=== PATIENT | male | born 1975 | race Caucasian/White ===

== ENCOUNTER 2023-11-17 10:37 | Outpatient (REF) | payer MEDICAID, SELFPAY ==
[2023-11-17 11:36] LABS: MANUAL DIFF FLAG NO
[2023-11-17 11:44] LABS: Basophils Absolute Auto 0.1 X10*3/uL (0.0-0.2); Basophils Percent Auto 0.7 % (0-2); Eosinophils Absolute Auto 0.1 X10*3/uL (0.0-0.4); Eosinophils Percent Auto 1.4 % (0-4); Hematocrit 47.1 % (42.0-52.0); Hemoglobin 16.2 g/dl (14.0-18.0); Imm Gran Abs Auto 0.03 X10*3/uL (0.00-0.03); Imm Gran Pct Auto 0.4 % (0.0-0.4); Lymphocytes Absolute Auto 2.2 X10*3/uL (1.2-4.9); Mean Corpuscular HGB Conc 34.4 g/dl (31.0-36.0); Mean Corpuscular Hemoglobin 27.8 pg (27.0-33.0); Mean Corpuscular Volume 80.9 fL (80.0-98.0); Mean Platelet Volume 9.3 fL (9.4-12.4); Monocytes Absolute Auto 0.5 X10*3/uL (0.1-1.2); Monocytes Percent Auto 7.5 % (2-11); Neutrophils Absolute Auto 4.1 x10*3/uL (2.0-8.3); Platelet Count 323 X10*3/uL (160-400); Red Blood Count 5.82 X10*6/uL (4.60-5.80); Red Cell Distribution Width 12.7 % (11.0-16.0)
[2023-11-17 12:12] LABS: Estimated Average Glucose 280 mg/dL; Hemoglobin A1c % 11.4 % (<6.0)
[2023-11-17 14:34] LABS: Anion Gap 14 (12-20); Blood Urea Nitrogen 13 mg/dL (9-16); Calcium 9.7 mg/dL (8.4-10.2); Carbon Dioxide 25 mmol/L (22-29); Chloride 101 mmol/L (96-108); Estimated Glomerular Filt Rate > 60; Glucose Random 365 mg/dL (60-115); Potassium 4.4 mmol/L (3.3-5.1); Sodium 136 mmol/L (135-145)
== END 2023-11-17 10:38 | disposition home or self-care (01) ==
LOC: HO.HHCL 10:37
PROVIDERS: Visit Provider Emergency Medicine
DX: I10 Essential (primary) hypertension (principal); E11.9 Type 2 diabetes mellitus without complications
CPT/HCPCS: 36415; 80048; 83036; 85025

== ENCOUNTER 2024-02-28 11:16 | Outpatient (REF) | payer MEDICAID, SELFPAY ==
[2024-02-28 13:14] LABS: MANUAL DIFF FLAG NO
[2024-02-28 13:21] LABS: Basophils Absolute Auto 0.1 X10*3/uL (0.0-0.2); Basophils Percent Auto 0.8 % (0-2); Eosinophils Absolute Auto 0.2 X10*3/uL (0.0-0.4); Eosinophils Percent Auto 2.1 % (0-4); Hematocrit 45.4 % (42.0-52.0); Imm Gran Abs Auto 0.05 X10*3/uL (0.00-0.03); Imm Gran Pct Auto 0.6 % (0.0-0.4); Lymphocytes Absolute Auto 2.4 X10*3/uL (1.2-4.9); Lymphocytes Percent Auto 27.5 % (20-40); Mean Corpuscular HGB Conc 35.2 g/dl (31.0-36.0); Mean Corpuscular Hemoglobin 28.3 pg (27.0-33.0); Mean Corpuscular Volume 80.2 fL (80.0-98.0); Mean Platelet Volume 9.5 fL (9.4-12.4); Monocytes Absolute Auto 0.7 X10*3/uL (0.1-1.2); Neutrophils Absolute Auto 5.2 x10*3/uL (2.0-8.3); Platelet Count 310 X10*3/uL (160-400); Red Blood Count 5.66 X10*6/uL (4.60-5.80); Red Cell Distribution Width 12.9 % (11.0-16.0); White Blood Count 8.5 X10*3/uL (4.8-10.8)
[2024-02-28 13:41] LABS: Alanine Aminotransferase 38 U/L (0-40); Albumin Level 4.4 g/dL (3.5-5.0); Alkaline Phosphatase 95 U/L (39-117); Anion Gap 13 (12-20); Aspartate Amino Transferase 16 U/L (5-37); Bilirubin Total 1.1 mg/dL (0.0-1.0); Blood Urea Nitrogen 18 mg/dL (9-16); Calcium 9.7 mg/dL (8.4-10.2); Carbon Dioxide 24 mmol/L (22-29); Chloride 103 mmol/L (96-108); Cholesterol 203 mg/dL (<200); Estimated Glomerular Filt Rate > 60; Glucose Random 282 mg/dL (60-115); HDL Cholesterol 33 mg/dL (>40); LDL Cholesterol Calculated 117 mg/dL (<100); Potassium 4.5 mmol/L (3.3-5.1); Sodium 135 mmol/L (135-145); Total Protein 7.9 g/dL (6.5-8.0); Triglycerides 267 mg/dL (<150)
== END 2024-02-28 11:17 | disposition home or self-care (01) ==
LOC: HO.HHCL 11:16
PROVIDERS: Visit Provider Nurse Practitioner Family
DX: E11.9 Type 2 diabetes mellitus without complications (principal); I10 Essential (primary) hypertension
CPT/HCPCS: 36415; 80053; 80061; 85025

== ENCOUNTER 2024-07-14 09:45 | Outpatient (REF) | payer MEDICAID, SELFPAY ==
[2024-07-14 12:07] LABS: Alanine Aminotransferase 41 U/L (0-40); Albumin Level 4.3 g/dL (3.5-5.0); Alkaline Phosphatase 103 U/L (39-117); Anion Gap 11 (12-20); Aspartate Amino Transferase 23 U/L (5-37); Bilirubin Direct 0.5 mg/dL (0.0-0.5); Bilirubin Total 1.7 mg/dL (0.0-1.0); Blood Urea Nitrogen 12 mg/dL (9-16); Calcium 9.1 mg/dL (8.4-10.2); Carbon Dioxide 27 mmol/L (22-29); Chloride 104 mmol/L (96-108); Cholesterol 115 mg/dL (<200); Estimated Glomerular Filt Rate > 60; Glucose Random 206 mg/dL (60-115); HDL Cholesterol 27 mg/dL (>40); LDL Cholesterol Calculated 53 mg/dL (<100); Potassium 4.2 mmol/L (3.3-5.1); Sodium 138 mmol/L (135-145); Total Protein 7.8 g/dL (6.5-8.0); Triglycerides 176 mg/dL (<150)
[2024-07-14 12:13] LABS: Creatinine Urine 207.35 mg/dL; Microalbum/Creatinine Ratio Ur 22.1 ug/mg cr (<30)
[2024-07-14 12:26] LABS: Vitamin B12 577 pg/mL (200-900)
== END 2024-07-14 09:46 | disposition home or self-care (01) ==
LOC: HO.HHCL 09:45
PROVIDERS: Visit Provider Nurse Practitioner Family
DX: I10 Essential (primary) hypertension (principal); I63.9 Cerebral infarction, unspecified; E11.9 Type 2 diabetes mellitus without complications
CPT/HCPCS: 36415; 80048; 80061; 80076; 82043; 82570; 82607

== ENCOUNTER 2024-10-27 10:23 | Outpatient (REF) | payer MEDICAID, SELFPAY ==
[2024-10-27 11:21] LABS: MANUAL DIFF FLAG NO
[2024-10-27 11:31] LABS: Basophils Percent Auto 0.4 % (0-2); Eosinophils Absolute Auto 0.1 X10*3/uL (0.0-0.4); Eosinophils Percent Auto 1.5 % (0-4); Hematocrit 41.1 % (42.0-52.0); Hemoglobin 14.3 g/dl (14.0-18.0); Imm Gran Abs Auto 0.04 X10*3/uL (0.00-0.03); Imm Gran Pct Auto 0.4 % (0.0-0.4); Lymphocytes Absolute Auto 2.1 X10*3/uL (1.2-4.9); Lymphocytes Percent Auto 22.1 % (20-40); Mean Corpuscular HGB Conc 34.8 g/dl (31.0-36.0); Mean Corpuscular Hemoglobin 27.3 pg (27.0-33.0); Mean Corpuscular Volume 78.4 fL (80.0-98.0); Monocytes Absolute Auto 0.5 X10*3/uL (0.1-1.2); Neutrophils Absolute Auto 6.6 x10*3/uL (2.0-8.3); Neutrophils Percent Auto 70.6 % (45-73); Platelet Count 328 X10*3/uL (160-400); Red Blood Count 5.24 X10*6/uL (4.60-5.80); Red Cell Distribution Width 13.2 % (11.0-16.0); White Blood Count 9.3 X10*3/uL (4.8-10.8)
--- OUTSIDE RECORDS SUMMARY | 2024-10-27 11:49 | XMS_ITS | Clinical Summary ---
Author Organization [employer] Address [address] [facility] [address] [place] [address] Care Team Providers Care Linotypist Name Role Phone MaximoLivia kelley CRISTI Primary Care Provider [phone] Samia Crum PharmD Unavailable [phone]- [phone] Allergies No known active allergies Medications lisinopril (Prinivil) 20 MG tabletIndications: Hypertension, unspecified type Take 1 tablet (20 mg) by mouth Once per day. 30 tablet 11 024 2024 Active amLODIPine (Norvasc) 5 MG tablet Take 1 tablet (5 mg) by mouth Once per day. 30 tablet 11 024 2024 Active Alcohol Swabs (Alcohol Prep) 70 % pads USE DIRECTED TO TEST BLOOD SUGAR THREE TIMES DAILY 100 each 5 025 Active metFORMIN (Glucophage) 850 MG tablet Take 1 tablet (850 mg) by mouth with breakfast and with evening meal. 180 tablet 2 025 2024 Active TRUEplus Lancets 33G miscIndications:Ty pe 2 diabetes mellitus without complication, with long-term current use of insulin ([facility]) USE DIRECTED TO TEST BLOOD SUGAR THREE TIMES DAILY 100 each 3 025 Active Continuous Glucose Furnace Mason (FreeStyle Selene 3 [place]) deviceIndications: Type 2 diabetes mellitus without complication, with long-term current use of insulin (CMS/[facility]) 1 each Use as directed. 1 each 025 Active Continuous Glucose Sensor (FreeStyle Selene 3 Plus Sensor) miscIndications:Ty pe 2 diabetes mellitus without complication, with long-term current use of insulin (CMS/[facility]) 1 each Use as directed. 2 each 025 Active glucose blood (FreeStyle Precision John Test) test stripIndications:T ype 2 diabetes mellitus without complication, with long-term current use of insulin ([facility]) Test blood sugar 3 times daily 100 each 025 2025 Active aspirin (Aspirin EC Adult Low Dose) 81 MG EC tabletIndications: Ischemic cerebrovascular accident (CVA) ([facility]) TAKE 1 TABLET BY MOUTH EVERY EVENING 90 tablet 3 025 Active glucose (Glutose) 40 % gel oral gelIndications:Typ e 2 diabetes mellitus without complication, with long-term current use of insulin ([facility]) Use as needed for low blood sugar 45 g 11 025 Active Dulaglutide (Trulicity) 3 MG/0.5ML solution auto-injectorIndic ations:Type 2 diabetes mellitus without complication, without long-term current use of insulin ([facility]) Inject 0.5 mL under the skin 1 (one) time per week. 2 mL 3 025 Active atorvastatin (Lipitor) 80 MG tablet Take 1 tablet (80 mg) by mouth Once per day. 90 tablet 3 025 2025 Active Blood Glucose Monitoring Suppl (FreeStyle Lite) w/Device kit 1 each 2 times daily. 1 kit 024 2024 Discontinued(M ed list cleanup (will not trigger notification to Pharmacy)) aspirin 81 MG EC tabletIndications: Ischemic cerebrovascular accident (CVA) ([facility]) Take 1 tablet (81 mg) by mouth Once per day. 90 tablet 024 2024 Discontinued Dulaglutide (Trulicity) 3 MG/0.5ML solution auto-injectorIndic ations:Type 2 diabetes mellitus without complication, without long-term current use of insulin ([facility]) Inject 0.5 mL under the skin 1 (one) time per week. 2 mL 3 025 2024 Discontinued(R eorder (will not trigger notification to Pharmacy)) glucose blood (FREESTYLE LITE) test stripIndications:T ype 2 diabetes mellitus without complication, with long-term current use of insulin ([facility]) USE DIRECTED THREE TIMES DAILY 100 strip 3 025 2024 Discontinued(M ed list cleanup (will not trigger notification to Pharmacy)) atorvastatin (Lipitor) 40 MG tablet Take 1 tablet (40 mg) by mouth in the morning. 90 tablet 1 025 2024 Discontinued Active Problems Problem Noted Date Diagnosed Date Health care maintenance 10/27/2024 Hyperbilirubinemia 10/27/2024 Moderate vascular dementia 09/17/2024 Assessment & Plan (09/17/2024 1:42 PM EST): Administer MOCA Needle phobia 08/25/2024 Type 2 diabetes mellitus wit hout complication, with long-term current use of insulin 08/25/2024 History of CVA (cerebrovascular accident) 2023 Dietary counseling 05/30/2024 Assessment & Plan (05/30/2024 4:49 PM EST): Encouraged minimizing processed foods and increasing whole foods particularly vegetables Exercise counseling 05/30/2024 Assessment & Plan (05/30/2024 4:50 PM EST): Encouraged daily movement, working up to 30 minutes daily Colon cancer screening 03/05/2024 Assessment & Plan (03/05/2024 8:41 PM EDT): Unable to address at todays visit Cerebrovascular accident (CVA) 02/28/2024 Overview (09/17/2024): Cva 06/16 CT of brain demonstrates chronic appearing left basilar infarct 07/2024 Assessment & Plan (09/17/2024 1:42 PM EST): Continue statin, Improve glucose control Referral to RN for MOCA Sister to aide in finding HORTICULTURAL THERAPIST Bp control improving Referral to neuro Assessment & Plan (07/22/2024 1:25 PM EST): Repeat ct ordered, referral to neuro Sibling reports sig memory difficulties impacting ability to comply with meds Independent Trader list given Assessment & Plan (05/30/2024 4:48 PM EST): Initiate statin, Phone call to pharmacy to update medbox Plan to increase dose if statin is tolerated Type 2 diabetes mellitus, wi thout long-term current use of insulin 11/11/2023 04/20/2023 Assessment & Plan (09/17/2024 1:42 PM EST): Needle phobia Referral for CGM. Assessment & Plan (07/22/2024 1:26 PM EST): Pt set alarms on phone to check sugars Consider injectables once supports are in the home Assessment & Plan (05/30/2024 4:47 PM EST): Above goal Tolerating trulicity, complete dose of 1.5 mg this Wednesday Rx for 3 mg trulicity sent for following dose Cgm ordered note sent to nursing Referred to pharmacy for ongoing htn and dm management Assessment & Plan (04/24/2024 7:18 PM EDT): Tolerating trulicity, todays sugars are improved, coordinated care with pharmacy for future fill of 1.5 mg when has completed 0.75 mg x 4 doses. Referral to mtm with pharmacy Assessment & Plan (04/14/2024 5:56 PM EDT): Todays readings were initially critically high, 10 units of humalog administered, came down to 404, Pt to push non sugar fluids, and continue to check sugars bid If sugars remain elevated seek er care, Rtc on Wednesday Care coordinated with pharmacist, and pt will have first dose of trulicity available later today Willing to participate in med box, Assessment & Plan (03/05/2024 8:46 PM EDT): Pt willing to trial moujaro, reports never received call from pharmacy, Will send to [facility] pharmacy, follow up in 2 weeks to continue glucose titatration Assessment & Plan (03/05/2024 8:41 PM EDT): Pt does not like checking sugar, urgency of glucose control reviewed, CGM ordered Rtc in 4 weeks HTN (hypertension) 11/11/2023 04/20/2023 Assessment & Plan (05/30/2024 4:48 PM EST): Sig improvement in bp today Continue current regimen Assessment & Plan (04/24/2024 7:17 PM EDT): Above goal though home bps are significantly better with evening checks at goal , increase lisinopril to 20 mg. Future bmp ordered Assessment & Plan (04/14/2024 5:54 PM EDT): Above goal today, pt has home bp cuff, Encourage compliance with medications If bp does not go down after taking medication or pt develops chest pain, seek er Rtc on Wednesday with bp readingsf Assessment & Plan (03/05/2024 8:45 PM EDT): Above goal today but improved Follow up in 2 weeks Assessment & Plan (03/05/2024 8:42 PM EDT): Above goal today, pt reports not certain if took meds, denies chest pain or pressure Add amolidipine 5 mg Ischemic cerebrovascular accident (CVA) 11/11/19 Overview (02/28/2024): 06/16 Assessment & Plan (03/05/2024 8:40 PM EDT): Pt not certain of exact history or care since CVA, today bp is not controlled Will follow up short term, consider referral to cardio Elevated glucose 02/04/2017 Overweight (BMI 25.0-29.9) 02/04/2017 Hernia, inguinal 10/26/2014 Overview (11/11/2023): Right side, repaired in 2010 per pt Encounters Date Type Department Care Team Description 10/27/2024 9:30 AM EDT Office Visit [address] [address] Livia Loredo NP Type 2 diabetes mellitus with hyperglycemia, without long-term current use of insulin (CMS/[facility]) (Primary Dx); Hypertension, unspecified type; Moderate vascular dementia, unspecified whether behavioral, psychotic, or mood disturbance or anxiety (CMS/HCC); Type 2 diabetes mellitus without complication, without long-term current use of insulin (CMS/HCC); Hyperbilirubinemia; Colon cancer screening; Health care maintenance; Dietary counseling; Exercise counseling 10/27/2024 Travel 10/18/2024 Travel 10/16/2024 Telephone [facility] [address] [place] [id number] Serenity Mcintosh MA Chart Prep 10/06/2024 Population Health Risk Score [facility] () Department [address] [place] [phone] Provider, Population Health Generic 10/02/2024 Refill [facility] [address] [place] [phone] Samia Crum, Monalisa Ischemic cerebrovascular accident (CVA) (CMS/HCC) 09/28/2024 Telephone [facility] [address] [place] [phone] Val Hills RN 09/27/2024 Travel 09/22/2024 11:00 AM EST Clinical Support [facility] [address] [place] [phone] Val Hills, RN History of CVA (cerebrovascular accident) 09/18/2024 Telephone [facility] [address] [place] [phone] Livia Loredo NP 09/07/2024 Telephone [facility] [address] [place] [phone] Samia Crum PharmD 09/06/2024 Travel 08/29/2024 Refill [facility] [address] [place] [phone] Wilmer Abreu MD Type 2 diabetes mellitus without complication, with long-term current use of insulin (CMS/HCC) 08/28/2024 Refill [facility] [address] [place] [phone] Livia Loredo NP Type 2 diabetes mellitus without complication, with long-term current use of insulin (CMS/HCC) 08/25/2024 11:45 AM EST Office Visit [facility] [address] [place] [address] Livia Loredo NP Type 2 diabetes mellitus without complication, with long-term current use of insulin (CMS/HCC) (Primary Dx); Needle phobia; Cerebrovascular accident (CVA), unspecified mechanism (CMS/HCC); Moderate vascular dementia, unspecified whether behavioral, psychotic, or mood disturbance or anxiety (CMS/HCC); Type 2 diabetes mellitus with hyperglycemia, without long-term current use of insulin (CMS/HCC) 08/25/2024 Travel 08/10/2024 Telephone [facility] [address] [place] [address] Serenity Mcintosh MA Chart Prep 08/08/2024 Travel 07/30/2024 Refill [facility] [address] [place], [place] [phone] Wilmer Abreu MD from Last 3 Months Immunizations Name Administration Dates Next Due HepB-CpG 09/06/2024,07/11/2024 Influenza injectable quadrivalent preservative f ree 08/15/2021 Influenza, seasonal, injectable, preservative fr ee 07/11/2024 Pfizer Covid-19 Vaccine 12+ 08/08/2024 Tdap 09/06/2024 Family History Medical History Relation Name Comments Diabetes Mother htn Mother Relation Name Status Comments Mother Social History Tobacco Use Types Packs/Day Years Used Date Smoking Tobacco: Never Passive Smoke Exposure: Never Smokeless Tobacco: Never Tobacco Cessation:Counseling Given: Not Answered Alcohol Use Standard Drinks/Week Comments Yes 0 (1 standard drink = 0.6 oz pur e alcohol) drinks beer on weekends Alcohol Answer Date Recorded How often do you have a drink containing alcohol ? 2 07/12/2024 How many drinks containing a lcohol do you have on a typical day when you are drinking? 0 07/12/2024 How often do you have six or more drinks on one occasion? 0 07/12/2024 Depression Answer Date Recorded Patient Health Questionnaire-9 Score 6 02/14/2024 Patient Health Questionnaire-9 Score 6 02/14/2024 Last PHQ-9: Questionnaire Data Not on file 0 02/14/2024 Housing Stability Answer Date Recorded What is your housing situation today? I have channing valencia 02/14/[address] you li ve. Do you have problems with any of the following? None of the above 02/14/2024 Food Insecurity Answer Date Recorded Within the past 12 months, y ou worried that your food would run out before you got money to buy more: Never True 02/14/2024 Within the past 12 months,th e food you bought just didn't last and you didn't have enough money to get more: Never True Transportation Answer Date Recorded In the past 12 months, has l ack of transportation kept you from medical appts, meetings, work or from getting things needed for daily living? No 02/14/2024 Utilities Answer Date Recorded In the past 12 months, has t he electric, gas, oil or water company threatened to shut off services in your home? No 02/14/2024 Depression Answer Date Recorded Patient Health Questionnaire-2 Score 1 02/14/2024 Internet Access Answer Date Recorded Internet Access Q1 No 03/27/2024 Internet Access Q2 Not on file 03/27/2024 Sex and Gender Information Value Date Recorded Sex Assigned at Male 11/11/2023 10:08 AM EDT Legal Sex Male 11:19 AM EDT Gender Identity Male 11/11/2023 10:08 AM EDT Sexual Orientation Straight 11/11/2023 10 :42 AM EDT Last Filed Vital Signs Vital Sign Reading Time Taken Comments Blood Pressure 147/89 10/27/2024 9:48 AM EDT Pulse 92 10/27/2024 9:48 AM EDT Temperature 36.8 ??C (98.3 ??F) 10/27/2024 9:48 AM ED T Respiratory Rate 18 10/27/2024 9:48 AM EDT Oxygen Saturation 98% 10/27/2024 9:48 AM EDT Inhaled Oxygen Concentration - - Weight 85.6 kg (188 lb 12.8 oz) 10/27/2024 9:48 AM EDT Height 175.3 cm (5' 9 ) 10/27/2024 9:48 AM EDT Body Mass Index 27.88 10/27/2024 9:48 AM EDT Plan of Treatment Upcoming Encounters Date Type Department Care Team (Late st Contact Info) Description 11/24/2024 9:00 AM EDT Medication Management [facility] [address] [place] [address] Samia Crum, PharmD [address] [place] [address] 02/02/2025 9:30 AM EDT Office Visit [facility] [address] [place] [address] Livia Loredo, CRISTI [address] [place] [address] Health Maintenance Due Date Last Done Comments CT Colonography 1974 Colonoscopy 1974 Colorectal Cancer Screening 1974 FIT DNA/Cologuard 1974 FIT 1974 FOBT 1974 HIV Screening 1974 Sigmoidoscopy 1974 Diabetes: Foot Exam 1984 Eye Exam 1984 Family Planning (PISQ) 1989 Hepatitis C Screening 1992 Pneumococcal Vaccine: 50+ Years (1 of 2 - PCV) 1993 Zoster Vaccines (1 of 2) 2024 Diabetes: Hemoglobin A1C 01/26/2025 025, 10/18/2024, 07/12/2024, Additional history exists Depression Screening 02/13/2025 02/14/2024, 02/14/20 24 SDOH Screening 02/13/2025 02/14/2024 Alcohol/Substance Use Screening 07/12/2025 07/12/2024 Diabetes: Urine Protein Screening 07/14/2025 07/14/2024 Lipid Panel 07/14/2025 07/14/2024, 02/28/2024 Tobacco Screening 10/27/2025 10/27/2024 DTaP/Tdap/Td Vaccines (2 - Td or Tdap) 09/06/2034 09/06/2024 RSV Patients and Patients Aged 60 years or older (1 - 1-dose 75+ series) 2049 Influenza Vaccine Completed 07/11/2024, 08/15/2021 COVID-19 Vaccine Completed 08/08/2024, , 12/26/2020, Additional history exists Hepatitis B Vaccines Completed 09/06/2024, 07/11/20 24 HIB Vaccines Aged Out No longer eligi ble based on patient's age to complete this topic HPV Vaccines Aged Out No longer eligi ble based on patient's age to complete this topic Hepatitis A Vaccines Aged Out No long er eligible based on patient's age to complete this topic IPV Vaccines Aged Out No longer eligi ble based on patient's age to complete this topic Meningococcal Vaccine Aged Out No gela glenys eligible based on patient's age to complete this topic RSV under 20 months Aged Out No longe r eligible based on patient's age to complete this topic Rotavirus Vaccines Aged Out No longer eligible based on patient's age to complete this topic Procedures Procedure Name Priority Date/Time Associated Diagnosis Comments CBC WITH AUTO DIFFERENTIAL Routine 10/27/2024 10:26 AM EDT Hyperbilirubinemia POCT GLYCATED HEMOGLOBIN, TOTAL Routine 10/27/2024 9:53 AM EDT Type 2 diabetes mellitus with hyperglycemia, without long-term current use of insulin ([facility]) POCT GLUCOSE Routine 10/27/2024 9:53 AM EDT Type 2 diabetes mellitus with hyperglycemia, without long-term current use of insulin (CMS/[facility]) POCT GLYCATED HEMOGLOBIN, TOTAL Routine 10/18/2024 10:38 AM EDT Type 2 diabetes mellitus without complication, with long-term current use of insulin (CMS/[facility]) POCT GLUCOSE Routine 08/25/2024 12:22 PM EST Type 2 diabetes mellitus without complication, with long-term current use of insulin (CMS/[facility]) ALBUMIN, RANDOM URINE W/CREATININE Routine 07/14/2024 9:47 AM EST LIPID PANEL, STANDARD Routine 07/14/2024 9:47 AM EST from Last 3 Months or Most Recently Relevant to Health Maintenance Results * (ABNORMAL) CBC auto differential (10/27/2024 10:26 AM EDT) White Blood Count 9.3 4.8 - 10.8 X10*3/uL [facility] Red Blood Count 5.24 4.60 - 5.80 X10*6/uL [facility] Hemoglobin 14.3 14.0 - 18.0 g/dl [facility] Hematocrit 41.1(L) 42.0 - 52.0 % [facility] Mean Corpuscular Volume 78.4(L) 80.0 - 98.0 fL [facility] Mean Corpuscular Hemoglobin 27.3 27.0 - 33.0 pg [facility] Mean Corpuscular HGB Conc 34.8 31.0 - 36.0 g/dl [facility] Red Cell Distribution Width 13.2 11.0 - 16.0 % [facility] Platelet Count 328 160 - 400 X10*3/uL [facility] Mean Platelet Volume 9.0(L) 9.4 - 12.4 fL [facility] Neutrophils Percent Auto 70.6 45 - 73 % [facility] Imm Gran Pct Auto 0.4 0.0 - 0.4 % [facility] Lymphocytes Percent Auto 22.1 20 - 40 % [facility] Monocytes Percent Auto 5.0 2 - 11 % [facility] Eosinophils Percent Auto 1.5 0 - 4 % [facility] Basophils Percent Auto 0.4 0 - 2 % [facility] NRBC Pct Auto 0.0 0.0 - 0.2 /100WBC [facility] Neutrophils Absolute Auto 6.6 2.0 - 8.3 x10*3/uL [facility] Imm Gran Abs Auto 0.04(H) 0.00 - 0.03 X10*3/uL [facility] Lymphocytes Absolute Auto 2.1 1.2 - 4.9 X10*3/uL [facility] Monocytes Absolute Auto 0.5 0.1 - 1.2 X10*3/uL [facility] Eosinophils Absolute Auto 0.1 0.0 - 0.4 X10*3/uL [facility] Basophils Absolute Auto 0.0 0.0 - 0.2 X10*3/uL [facility] NRBC Abs Auto 0.000 0.0 - 0.012 X10*3/uL [facility] Blood Venous blood specimen / Unknown 10/27/2024 10:26 AM EDT 10/27/2024 11:18 AM EDT Livia Loredo [employer] LAB BLOOD ORDERABLES Final Resul t [facility] [address] [place] [address] [phone] * (ABNORMAL) POCT HGB A1C (10/27/2024 9:53 AM EDT) Only the most recent of2 resultswithin the time period is included. Hemoglobin A1C 7.5(A) 4.0 - 6.0 % QC Media Lot # [id number] Lot# Expiration Date [id number] Blood 10/27/2024 9:53 AM EDT Livia Loredo [employer] POINT OF CARE TEST ENTER/EDIT OR DERABLES Final Result * (ABNORMAL) POCT Glucose (10/27/2024 9:53 AM EDT) Only the most recent of2 resultswithin the time period is included. Glucose Blood, POC 225(A) 60 - 200 mg/dL QC Media Lot # [id number] Lot# Expiration Date 101,425 Blood Capillary blood specimen / Unknown 10/27/2024 9:53 AM EDT Livia Loredo [employer] POINT OF CARE TEST ENTER/EDIT OR DERABLES Final Result * Albumin, Random Urine W/Creatinine (07/14/2024 9:47 AM EST) Creatinine, Urine 207.35 mg/dL [facility] Microalbumin Urine 46.0 mg/L H [facility] Microalbum Creatinine Ratio Ur 22.1 <30 ug/mg cr [facility] Comment:Albumin/Creatinine R atio Reference Ranges: Normal: < 30 ug/mg creatinine Microalbuminuria: 30 - 300 ug/mg creatinineClinical Albuminuria: > 300 ug/mg creatinine 07/14/2024 9:47 AM EST 07/14/2024 11:49 AM EST us Livia Loredo [employer] URINE ORDERABLES Final Resul t Performing Organization Address [facility] Co de Phone Number [facility] [address] [place] [address] [phone] * (ABNORMAL) Lipid Panel, Standard (07/14/2024 9:47 AM EST) Triglycerides 176(H) <150 mg/dL [facility] Comment:Desirable Triglyceri de: less than 150 mg/dLBorderline High Triglyceride 150-199 mg/dLHigh Triglyceride: 200-499 mg/dLVery High Triglyceride: greater than or equal to 5OO mg/dL Cholesterol 115 <200 mg/dL [facility] Comment:Desirable Cholestero l: less than 200 mg/dLBorderline High Cholesterol: 200-239 mg/dLHigh Cholesterol: greater than 239 mg/dL LDL Cholesterol Calculated 53 <100 mg/dL [facility] Comment:Desirable LDL: less than 100 mg/dLNear Optimal/Above Optimal LDL: 110- 129 mg/dLBorderline High LDL: 130-159 mg/dLHigh LDL: 160-189 mg/dLVery High LDL: greater than or equal to 190 mg/dL HDL Cholesterol 27(L) >40 mg/dL [facility] Comment:Desirable HDL: great er than 40 mg/dL Note: This HDL assay may give artificially low results in patients with liver disease. 07/14/2024 9:47 AM EST 07/14/2024 11:32 AM EST us Livia Loredo [employer] LAB BLOOD ORDERABLES Final Resul t [facility] [address] [place] [address] [phone] from Last 3 Months or Most Recently Relevant to Health Maintenance Insurance [facility] C3 Care Teams Linotypist Relationship Specialty Start Date End Date Livia Loredo NP [address] [place] [address] PCP - General Family Medicine 02/14/24 Samia Crum, RyleyD [address] [place] [address] Pharmacist Internal Medicine 07/11/24
--- OUTSIDE RECORDS SUMMARY | 2024-10-27 11:49 | XMS_ITS | Encounter Summary ---
Author Organization [employer] Address [address] [facility] [address] [place] [address] Care Team Providers Care Career Developer Name Role Phone Livia Loredo CRISTI Primary Care Provider [phone] Samia Crum PharmD Unavailable [phone] Reason for Visit * Reason Comments Med Refill Encounter Details Date Type Department Care Team (Late st Contact Info) Description 12/13/2023 Refill [facility] [address] [place] [phone] Wilmer Abreu MD [address] [place] [address] Social History Tobacco Use Types Packs/Day Years Used Date Smoking Tobacco: Never Smokeless Tobacco: Never Alcohol Use Standard Drinks/Week Comments Yes 0 (1 standard drink = 0.6 oz pur e alcohol) Sex and Gender Information Value Date Recorded Sex Assigned at Male 11/11/2023 10:08 AM EDT Legal Sex Male 11:19 AM EDT Gender Identity Male 11/11/2023 10:08 AM EDT Sexual Orientation Straight 11/11/2023 10 :42 AM EDT documented as of this encounter Plan of Treatment Upcoming Encounters Date Type Department Care Team (Late Contact Info) Description 11/24/2024 9:00 AM EDT Medication Management [facility] [address] [place] [phone] Samia Crum, PharmD [address] [place] [address] 02/02/2025 9:30 AM EDT Office Visit [facility] [address] [place] [address] Livia Loredo NP [address] [place] [address] documented as of this encounter Visit Diagnoses Not on filedocumented in this encounter Care Teams Career Developer Relationship Specialty Start Date End Date Livia Loredo NP [address] [place] [address] PCP - General Family Medicine 02/14/24 Samia Crum PharmD [address] [place] [address] Pharmacist Internal Medicine 07/11/24 documented as of this encounter
--- OUTSIDE RECORDS SUMMARY | 2024-10-27 11:49 | XMS_ITS | Clinical Summary ---
Author Organization [facility] Address [id number] [place] [phone] Care Team Providers Care Stockfeed Miller Name Role Phone Morena Escobar MD Primary Care Provider [phone] Social History Tobacco Use Types Packs/Day Years Used Date Smoking Tobacco: Never Assessed Sex and Gender Information Value Date Recorded Sex Assigned at Not on file Legal Sex Male 4:37 AM EST Gender Identity Not on file Sexual Orientation Not on file Plan of Treatment Health Maintenance Due Date Last Done Comments DTaP,Tdap,and Td Vaccines (1 - Tdap) 1993 Hepatitis B Vaccines (1 of 3 - 19+ 3-dose series) 1993 Cholesterol Screening (Lipid Panel) 06/28/2022 Colorectal Cancer Screening: Colonoscopy 06/28/2022 Depression Screening 06/28/2022 HIV Screening 06/28/2022 Hepatitis C Screening 06/28/2022 Social Influencers of Health Screening 06/28/2022 COVID-19 Vaccine (1 - 2023-2 5 season) 2024 Pneumococcal Vaccine: 50+ Ye ars (1 of 1 - PCV) 2024 Zoster Vaccines (1 of 2) 2024 Influenza Vaccine (Season Ended) 2025 HIB Vaccines Aged Out No longer eligi [...] on patient's age to complete this topic MMR Vaccines Aged Out No longer eligi ble based on patient's age to complete this topic Meningococcal ACWY Vaccine Aged Out N o longer eligible based on patient's age to complete this topic Meningococcal B Vacine Aged Out No lo nger eligible based on patient's age to complete this topic Pneumococcal Vaccine: Pediat rics (0 to 5 Years) and At-Risk Patients (6 to 64 Years) Aged Out No longer eligible b ased on patient's age to complete this topic RSV Immunization Patients Un winter 20 months Aged Out No longer eligible b ased on patient's age to complete this topic Varicella Vaccines Aged Out No longer eligible based on patient's age to complete this topic Care Teams Stockfeed Miller Relationship Specialty Start Date End Date Morena Escobar MD PCP - General Internal Medicine 12/20/20
--- OUTSIDE RECORDS SUMMARY | 2024-10-27 11:49 | XMS_ITS | Clinical Summary ---
Author Organization [facility] Address [address] [place] [address] Care Team Providers Care Cement Mason Name Role Phone Mani Wei CRISTI Primary Care Provider [phone] Source Comments PLEASE NOTE, if this patient is a minor, it may be UNLAWFUL to discuss sensitive information that is contained in these records (such as FAMILY PLANNING, MENTAL HEALTH or SUBSTANCE ABUSE) with the minor patient's parent or other person without the patient's specific authorization.[facility] Allergies No known active allergies Medications No known medications Active Problems Problem Noted Date Diagnosed Date Hernia, inguinal 10/26/2014 Overview (10/26/2014): Right side, repaired in 2010 per pt Family History Medical History Relation Name Comments Hypertension Father Diabetes Mother Hypertension Mother Relation Name Status Comments Father Alive Mother Alive Social History Tobacco Use Types Packs/Day Years Used Date Smoking Tobacco: Never Smokeless Tobacco: Never Alcohol Use Standard Drinks/Week Comments Yes 0 (1 standard drink = 0.6 oz pur e alcohol) socially Social Connections Answer Date Recorded Social Connections and Isolation 0 03/19/2019 Financial Resource Strain Answer Date R ecorded Financial Resource Strain 0 2018 Stress Answer Date Recorded Stress 0 03/19/2019 Physical Activity Answer Date Recorded Physical Activity 0 03/19/2019 Food Insecurity Answer Date Recorded Food 0 03/19/2019 Transportation Needs Answer Date Record ed Transportation 0 03/19/2019 Housing Stability Answer Date Recorded Housing 0 03/19/2019 Safety and Environment Answer Date Lexa rded Safety 0 03/19/2019 Utilities Answer Date Recorded Utilities 0 03/19/2019 Employment Answer Date Recorded Employment 0 03/19/2019 Sex and Gender Information Value Date Recorded Sex Assigned at Not on file Legal Sex Male 6:26 AM PDT Gender Identity Not on file Sexual Orientation Not on file Last Filed Vital Signs Vital Sign Reading Time Taken Comments Blood Pressure 126/78 03/05/2015 3:37 PM EDT Pulse 70 03/05/2015 3:37 PM EDT Temperature 36.6 ??C (97.8 ??F) 03/05/2015 3:37 PM ED T Respiratory Rate 16 03/05/2015 3:37 PM EDT Oxygen Saturation - - Inhaled Oxygen Concentration - - Weight 89.4 kg (197 lb) 03/05/2015 3:37 PM EDT Height 175.3 cm (5' 9 ) 03/05/2015 3:37 PM EDT Body Mass Index 29.09 03/05/2015 3:37 PM EDT Plan of Treatment Not on file Insurance [facility] Member Subscriber Plan / Payer (Ef fective 2014-Present) Name:Sadi Sigala Relation to Subscriber:Self Name:Sadi Sigala Payer ID:[id number] Group ID:Not on file Type:Medicaid Address: [facility] [id number] [place] [address] [facility] Care Teams Cement Mason Relationship Specialty Start Date End Date Mani Wei NP [address] [place] [phone] [facility] - General 06/02/18
--- OUTSIDE RECORDS SUMMARY | 2024-10-27 11:49 | XMS_ITS | Encounter Summary ---
Author Organization [employer] Address [address] [facility] [address] [place] [address] Care Team Providers Care Scales Inspector Name Role Phone Livia Loredo NP Primary Care Provider [phone] Samia Crum PharmD Unavailable [phone] Reason for Referral * Consultation (Routine) - Pending Review Specialty Diagnoses / Procedures Referred By Farhana vargas Referred To Contact Gastroenterology Diagnoses Colon cancer screening Livia Loredo NP [address] [place] [address] Phone: tel: fax: Referral ID Status Reason Start Date Expiration Date Visits Requested Visits Authorized [id number] Pending Review Specialty Services Required 10/27/2024 10/27/2025 1 1 * Consultation (Urgent) - Pending Review Specialty Diagnoses / Procedures Referred By Farhana vargas Referred To Contact Psychology Diagnoses Moderate vascular dementia, unspecified whether behavioral, psychotic, or mood disturbance or anxiety (CMS/HCC) Livia Loredo NP [address] [place] [address] Phone: tel: fax: Referral ID Status Reason Start Date Expiration Date Visits Requested Visits Authorized [id number] Pending Review Specialty Services Required 10/27/2024 10/27/2025 1 1 Encounter Details Date Type Department Care Team (Late st Contact Info) Description 10/27/2024 9:30 AM EDT Office Visit [facility] [address] [place] [address] Livia Loredo, CRISTI [address] [place] [address] Type 2 diabetes mellitus with hyperglycemia, without long-term current use of insulin (CMS/HCC) (Primary Dx); Hypertension, unspecified type; Moderate vascular dementia, unspecified whether behavioral, psychotic, or mood disturbance or anxiety (CMS/HCC); Type 2 diabetes mellitus without complication, without long-term current use of insulin (CMS/HCC); Hyperbilirubinemia; Colon cancer screening; Health care maintenance; Dietary counseling; Exercise counseling Social History Tobacco Use Types Packs/Day Years Used Date Smoking Tobacco: Never Passive Smoke Exposure: Never Smokeless Tobacco: Never Alcohol Use Standard [...] is your housing situation today? I have [facility]anning[facility] 02/14/[address] you [...] AM EDT documented as of this encounter Last Filed Vital Signs Vital Sign Reading Time Taken Comments Blood Pressure 147/89 10/27/2024 9:48 AM EDT Pulse 92 10/27/2024 9:48 AM EDT Temperature 36.8 ??C (98.3 ??F) 10/27/2024 9:48 AM ED T Respiratory Rate 18 10/27/2024 9:48 AM EDT Oxygen Saturation 98% 10/27/2024 9: 48 AM EDT Inhaled Oxygen Concentration - - Weight 85.6 kg (188 lb 12.8 oz) 10/27/2024 9:48 AM EDT Height 175.3 cm (5' 9 ) 10/27/2024 9:48 AM EDT Body Mass Index 27.88 10/27/2024 9:48 AM EDT documented in this encounter Plan of Treatment Upcoming Encounters Date Type Department Care Team (Late st Contact Info) Description 11/24/2024 9:00 AM EDT Medication Management [facility] [address] [place] [phone] Samia Crum, PharmD [address] [place] [address] 02/02/2025 9:30 AM EDT Office Visit [facility] [address] [place] [address] Livia Loredo NP [address] [place] [address] Scheduled Orders Name Type Priority Associated Diagnoses Orde r Schedule Comprehensive Metabolic Panel Lab Routine Hyperbilirubinemia Expected: 10/27/2024 (Approximate), Expires: 10/27/2025 Hepatitis C Antibody with Reflex to HCV, RNA, Quantitative, Real-Time PCR Lab Routine Health care maintenance Expected: 10/27/2024, Expires: 10/27/2025 Scheduled Referrals Name Type Priority Associated Diagnoses Order Schedule Referral to Neuropsychology Outpatient Referral Urgent Moderate vascular dementia, unspecified whether behavioral, psychotic, or mood disturbance or anxiety (CMS/HCC) Expected: 10/27/2024 (Approximate), Expires: 10/27/2025 Referral to Gastroenterology Outpatient Referral Routine Colon cancer screening Expected: 10/27/2024 (Approximate), Expires: 10/27/2025 documented as of this encounter Procedures Procedure Name Priority Date/Time Associated Diagnosis Comments CBC WITH AUTO DIFFERENTIAL Routine 10/27/2024 10:26 AM EDT Hyperbilirubinemia POCT GLYCATED HEMOGLOBIN, TOTAL Routine 10/27/2024 9:53 AM EDT Type 2 diabetes mellitus with hyperglycemia, without long-term current use of insulin ([facility]) POCT GLUCOSE Routine 10/27/2024 9:53 AM EDT Type 2 diabetes mellitus with hyperglycemia, without long-term current use of insulin ([facility]) documented in this encounter Results * (ABNORMAL) CBC auto differential (10/27/2024 10:26 AM EDT) White Blood Count 9.3 4.8 - 10.8 X10*3/uL [facility] Red Blood Count 5.24 4.60 - 5.80 X10*6/uL [facility] Hemoglobin 14.3 14.0 - 18.0 g/dl [facility] Hematocrit 41.1(L) 42.0 - 52.0 % [facility] Mean Corpuscular Volume 78.4(L) 80.0 - 98.0 fL [facility] Mean Corpuscular Hemoglobin 27.3 27.0 - 33.0 pg [facility] Mean Corpuscular HGB Conc 34.8 31.0 - 36.0 g/dl [facility] Red Cell Distribution Width 13.2 11.0 - 16.0 % [facility] Platelet Count 328 160 - 400 X10*3/uL [facility] Mean Platelet Volume 9.0(L) 9.4 - 12.4 fL [facility] Neutrophils Percent Auto 70.6 45 - 73 % [facility] Imm Gran Pct Auto 0.4 0.0 - 0.4 % [facility] Lymphocytes Percent Auto 22.1 20 - 40 % [facility] Monocytes Percent Auto 5.0 2 - 11 % [facility] Eosinophils Percent Auto 1.5 0 - 4 % [facility] Basophils Percent Auto 0.4 0 - 2 % [facility] NRBC Pct Auto 0.0 0.0 - 0.2 /100WBC [facility] Neutrophils Absolute Auto 6.6 2.0 - 8.3 x10*3/uL [facility] Imm Gran Abs Auto 0.04(H) 0.00 - 0.03 X10*3/uL [facility] Lymphocytes Absolute Auto 2.1 1.2 - 4.9 X10*3/uL [facility] Monocytes Absolute Auto 0.5 0.1 - 1.2 X10*3/uL [facility] Eosinophils Absolute Auto 0.1 0.0 - 0.4 X10*3/uL [facility] Basophils Absolute Auto 0.0 0.0 - 0.2 X10*3/uL [facility] NRBC Abs Auto 0.000 0.0 - 0.012 X10*3/uL [facility] Blood Venous blood specimen / Unknown 10/27/2024 10:26 AM EDT 10/27/2024 11:18 AM EDT us Livia Loredo NP LAB BLOOD ORDERABLES Final Resul t [facility] [address] [place] [address] [phone] * (ABNORMAL) POCT HGB A1C (10/27/2024 9:53 AM EDT) Hemoglobin A1C 7.5(A) 4.0 - 6.0 % [facility] Media Lot # [id number] Lot# Expiration Date [id number] Blood 10/27/2024 9:53 AM EDT Livia Loredo LOOKBACK COORDINATOR POINT OF CARE TEST ENTER/EDIT OR DERABLES Final Result * (ABNORMAL) POCT Glucose (10/27/2024 9:53 AM EDT) Glucose Blood, POC 225(A) 60 - 200 mg/dL QC Media Lot # [id number] Lot# Expiration Date 101,425 Blood Capillary blood specimen / Unknown 10/27/2024 9:53 AM EDT Livia Loredo LOOKBACK COORDINATOR POINT OF CARE TEST ENTER/EDIT OR DERABLES Final Result documented in this encounter Visit Diagnoses Diagnosis Type 2 diabetes mellitus with hyperglycemia, without long-term current use of insulin ([facility])- Primary Hypertension, unspecified type Moderate vascular dementia, unspecified whether behavioral, psychotic, or mood disturbance or anxiety ([facility]) Type 2 diabetes mellitus without complication, without long-term current use of insulin ([facility]) Hyperbilirubinemia Disorders of bilirubin excretion Colon cancer screening Special screening for malignant neoplasms, colon Health care maintenance Dietary counseling Dietary surveillance and counseling Exercise counseling documented in this encounter Additional Health Concerns Assessment Noted Time PHQ-9 Depression Total Score: 6 02/14/20 24 10:59 AM EDT documented as of this encounter Care Teams Scales Inspector Relationship Specialty Start Date End Date Livia Loredo NP [address] [place] [address] PCP - General Family Medicine 02/14/24 Samia Crum PharmD [address] [place] [address] Pharmacist Internal Medicine 07/11/24 documented as of this encounter
--- OUTSIDE RECORDS SUMMARY | 2024-10-27 11:49 | XMS_ITS | Encounter Summary ---
Author Organization [employer] Address [address] [facility] [address] [place] [address] Care Team Providers Care Md Physician Dermatologist Name Role Phone MaximoLivia kelley CRISTI Primary Care Provider [phone] Samia Crum PharmD Unavailable [phone] Encounter Details Date Type Department Care Team (Latest Contact Info) Description 10/27/2024 Travel Social History Tobacco Use Types Packs/Day Years [...] Description 11/24/2024 9:00 AM EDT Medication Management [facility] [address] [place] [phone] Samia Crum PharmD [address] [place] [phone] 02/02/2025 9:30 AM EDT Office Visit [facility] [address] [place] [phone] Livia Loredo NP [address] [place] [phone] documented as of this encounter Visit Diagnoses Not on filedocumented in this encounter Additional Health Concerns Assessment Noted Time PHQ-9 Depression Total Score: 6 02/14/20 24 10:59 AM EDT documented as of this encounter Care Teams Md Physician Dermatologist Relationship Specialty Start Date End Date Livia Loredo NP [address] [place] [phone] PCP - General Family Medicine 02/14/24 Samia Crum PharmD [address] [place] [phone] Pharmacist Internal Medicine 07/11/24 documented as of this encounter
[2024-10-27 12:26] LABS: Alanine Aminotransferase 31 U/L (0-40); Albumin Level 4.2 g/dL (3.5-5.0); Alkaline Phosphatase 113 U/L (39-117); Anion Gap 10 (12-20); Aspartate Amino Transferase 19 U/L (5-37); Bilirubin Direct 0.4 mg/dL (0.0-0.5); Bilirubin Total 1.5 mg/dL (0.0-1.0); Blood Urea Nitrogen 15 mg/dL (9-16); Carbon Dioxide 27 mmol/L (22-29); Chloride 106 mmol/L (96-108); Cholesterol 108 mg/dL (<200); Estimated Glomerular Filt Rate > 60; Glucose Random 188 mg/dL (60-115); HDL Cholesterol 28 mg/dL (>40); LDL Cholesterol Calculated 56 mg/dL (<100); Potassium 3.6 mmol/L (3.3-5.1); Sodium 139 mmol/L (135-145); Total Protein 7.4 g/dL (6.5-8.0); Triglycerides 122 mg/dL (<150)
[2024-10-27 12:44] LABS: ~HepC Num1 0.12 S/CO (0.00-0.79); ~Hepatitis C Antibody Nonreactive (Nonreactive)
== END 2024-10-27 10:24 | disposition home or self-care (01) ==
LOC: HO.HHCL 10:23
PROVIDERS: Visit Provider Nurse Practitioner Family
DX: Z00.00 Encounter for general adult medical examination without abnormal findings (principal); I63.9 Cerebral infarction, unspecified; E80.6 Other disorders of bilirubin metabolism
CPT/HCPCS: 36415; 80053; 80061; 82248; 85025; 86803